=== PATIENT | male | born 1970 | race Caucasian/White ===

== ENCOUNTER 2020-01-25 20:42 | Emergency (ER) | payer SELFPAY ==
[2020-01-25] MEDS ORDERED: LORAZEPAM 1 MG TABLET PO ONE (21:36)
--- NOTE | 2020-01-25 21:38 | ER Document Report ---
ED Medical Screen (RME) - General Chief Complaint: Probable Seizure Stated Complaint: FALL Time Seen by Provider: 01/25/20 21:36 Information source: Patient Notes: Patient presents after having a witnessed seizure 2 hours prior to arrival at the [facility] facility. Patient was admitted there for alcohol detox. Patient states last alcohol use was 6 days ago. Patient states that he feels much better since receiving an injection at the detox facility after he had a seizure. Patient does have noticeable fine tremor to the hands bilaterally. I have greeted and performed a rapid initial assessment of this patient. A comprehensive ED assessment and evaluation of the patient, analysis of test results and completion of the medical decision making process will be conducted by additional ED providers. Physical Exam - Vital signs Vitals: Temp Pulse Resp BP Pulse Ox 98.1 F 99 18 130/78 H 95 01/25/20 20:52 01/25/20 20:52 01/25/20 20:52 01/25/20 20:52 01/25/20 20:52 - General General appearance: Alert Notes: Tremor noted to bilateral upper extremities Course - Vital Signs Vital signs: Temp Pulse Resp BP Pulse Ox 98.1 F 99 18 130/78 H 95 01/25/20 20:52 01/25/20 20:52 01/25/20 20:52 01/25/20 20:52 01/25/20 20:52
[2020-01-25 22:18] LABS: ABSOLUTE LYMPHOCYTES (AUTO) 0.9 10^3/uL (0.5-4.7); ABSOLUTE MONOCYTES (AUTO) 0.4 10^3/uL (0.1-1.4); ABSOLUTE NEUT (AUTO) 4.9 10^3/uL (1.7-8.2); BASOPHILS % (AUTO) 0.6 % (0-2); EOSINOPHILS % (AUTO) 0.5 % (0-6); HEMATOCRIT 42.6 % (37.9-51.0); HEMOGLOBIN 14.8 g/dL (13.5-17.0); LYMPHOCYTES % (AUTO) 14.1 % (13-45); MEAN CORPUSCULAR HEMOGLOBIN 34.6 pg (27.0-33.4); MEAN CORPUSCULAR HGB CONC 34.7 g/dL (32.0-36.0); MEAN CORPUSCULAR VOLUME 100 fl (80-97); MONOCYTES % (AUTO) 6.5 % (3-13); PLATELET COUNT 138 10^3/uL (150-450); RED BLOOD COUNT 4.27 10^6/uL (4.35-5.55); RED CELL DISTRIBUTION WIDTH 13.6 % (11.5-14.0); SEGMENTED NEUTROPHILS % (AUTO) 78.3 % (42-78); TOTAL CELLS COUNTED % (AUTO) 100 %; WHITE BLOOD COUNT 6.2 10^3/uL (4.0-10.5)
[2020-01-25 22:31] LABS: ALBUMIN 4.4 g/dL (3.5-5.0); ALKALINE PHOSPHATASE 119 U/L (38-126); ANION GAP 8 (5-19); APPEARANCE,URINE SLIGHTLY-CLOUDY; ASPARTATE AMINO TRANSFERASE 47 U/L (17-59); BILIRUBIN,DIRECT 0.3 mg/dL (0.0-0.4); BILIRUBIN,TOTAL 0.6 mg/dL (0.2-1.3); BILIRUBIN,URINE NEGATIVE (NEGATIVE); BLOOD UREA NITROGEN 8 mg/dL (7-20); CALCIUM 9.5 mg/dL (8.4-10.2); CARBON DIOXIDE 28 mmol/L (22-30); CHLORIDE 102 mmol/L (98-107); COLOR,URINE YELLOW; GLUCOSE 109 mg/dL (75-110); GLUCOSE, URINE NEGATIVE (NEGATIVE); KETONES,URINE NEGATIVE (NEGATIVE); LEUKOCYTE ESTERASE,URINE NEGATIVE (NEGATIVE); NITRITE,URINE NEGATIVE (NEGATIVE); POTASSIUM 4.1 mmol/L (3.6-5.0); PROTEIN,URINE 100 mg/dL (NEGATIVE); TOTAL PROTEIN 7.1 g/dL (6.3-8.2); URINE SPECIFIC GRAVITY 1.012; UROBILINOGEN,URINE NEGATIVE mg/dL (<2.0)
[2020-01-25 22:33] LABS: ADD MANUAL MICROSCOPIC YES
[2020-01-25 22:34] LABS: BACTERIA,URINE 1+ /HPF
[2020-01-25 22:40] LABS: URINE AMPHETAMINES SCREEN NEGATIVE; URINE BARBITURATES SCREEN NEGATIVE; URINE COCAINE SCREEN NEGATIVE; URINE MARIJUANA (THC) SCREEN NEGATIVE; URINE METHADONE SCREEN NEGATIVE; URINE PHENCYCLIDINE SCREEN NEGATIVE
[2020-01-25 22:43] LABS: ACETAMINOPHEN < 10 ug/mL (10-30); ALCOHOL < 10 mg/dL (NONE DETECTED); SALICYLATE < 1.0 mg/dL (2.0-20.0); URINE BENZODIAZEPINES SCREEN UNCONFIRMED POSITIVE
[2020-01-26] MEDS ORDERED: LORAZEPAM INJ 2 MG/1 ML VIAL IM ONE (04:15)
[2020-01-26] MEDS ORDERED: LEVETIRACETAM 1000 MG/NACL-ISO 1,000 MG/100 ML RTUPB IV ONE (04:24)
[2020-01-26] MEDS ORDERED: THIAMINE HCL 100 MG, FOLIC ACID 1 MG in NORMAL SALINE 250 ML IV ONE (05:12)
--- NOTE | 2020-01-26 05:13 | ER Document Report ---
ED General - General Chief Complaint: Seizure Stated Complaint: FALL Time Seen by Provider: 01/25/20 21:36 - HPI Notes: Patient is a 49-year-old male who presents to the ER for evaluation of seizures. Entire history is obtained from the referral sheet from [facility]. Evidently the patient was admitted for alcohol detoxification on January 23. On January 24 at 7:48 PM, patient was sitting when he started shaking, exhibiting seizure activity. He was given 2 mg of IM lorazepam and sent to the ED for further evaluation. He had been given gabapentin 600 mg p.o. at 3:45 PM. - Related Data Allergies/Adverse Reactions: No Known Allergies Allergy (Unverified 01/26/20 04:53) Home Medications: Antihypertensives, alprazolam Past Medical History - General Information source: Patient - Social History Smoking Status: Current Every Day Smoker Frequency of alcohol use: Heavy Drug Abuse: None Family History: Reviewed & Not Pertinent - Past Medical History Cardiac Medical History: Reports: Hx Hypertension Past Surgical History: Reports: Other - Carpal tunnel release Review of Systems - Review of Systems -: Yes ROS unobtainable due to patient's medical condition Physical Exam - Vital signs Vitals: Temp Pulse Resp BP Pulse Ox 98.1 F 99 18 130/78 H 95 01/25/20 20:52 01/25/20 20:52 01/25/20 20:52 01/25/20 20:52 01/25/20 20:52 - Notes Notes: Vital signs reviewed, please refer to chart. Head is normocephalic, atraumatic. Pupils equal round, reactive to light. Neck is supple without meningismus. Heart is regular rate and rhythm. Lungs are clear to auscultation bilaterally. Abdomen is soft, nontender, normoactive bowel sounds throughout. Extremities without cyanosis, clubbing. Posterior calves are nontender. Peripheral pulses are equal. Skin is warm and dry. Patient is awake, alert, disoriented to place and time. Cranial nerves II - XII are grossly intact without focal neurological deficits. Strength is plus 5 out of 5 bilateral upper and lower extremities. Sensation is intact. Reflexes symmetrical. Intact [id number], rapid alternating movements, [id number]. Course - Re-evaluation Re-evalutation: 01/26/20 05:11 Patient presented to the emergency department for evaluation. He was initially seen through triage, was given oral Ativan, had laboratory investigations ordered. I was called into evaluate the patient when he had been being transported back to a room, had a seizure activity. He did have witnessed seizure activity, was lowered to the floor. Seizure lasted approximately 60 seconds. He did have an appropriate postictal. He became slightly combative. He was medicated with 2 mg of IM Ativan, placed in a bed with seizure precautions in place. Was placed on manager cardiac cath. We will continue to monitor. 01/26/20 06:02 I went back into evaluate patient after he returned from CT scan. He is still disoriented, but now admits that he drinks. He admits he is here for alcohol withdrawal. He states that he drinks beer, is not uncommon for him to drink uppercase a day. He has no history of seizures prior to this. He complains of a mild headache to the left side of his head, otherwise no acute complaints or concerns. Still awaiting results of scan, lab work is largely unremarkable. 01/26/20 06:22 CT scan unremarkable. [facility] states that after a CT scan and medical clearance he can go back to [facility]. I will write him a prescription for a week of Keppra. He is to return to the ED with worsening or new concerning symptoms of any sort. - Vital Signs Vital signs: Temp Pulse Resp BP Pulse Ox 98.4 F 98 27 H 139/95 H 97 01/26/20 01:44 01/26/20 01:44 01/26/20 04:25 01/26/20 04:28 01/26/20 04:28 - Laboratory Result Diagrams: 01/25/20 21:56 01/25/20 21:56 Laboratory results interpreted by me: 01/25/20 01/25/20 01/25/20 21:56 21:56 21:56 RBC 4.27 L MCV 100 H MCH 34.6 H Plt Count 138 L Seg Neutrophils % 78.3 H Urine Protein 100 H Urine Ascorbic Acid 20 H Salicylates < 1.0 L Acetaminophen < 10 L - Diagnostic Test Radiology reviewed: Image reviewed, Reports reviewed Radiology results interpreted by me: 01/26/20 06:[address] 01/26/20 05:12 IMPRESSION: No acute intracranial abnormality TECHNICAL DOCUMENTATION: Quality ID # 436: Final reports with documentation of one or more dose reduction techniques (e.g., Automated exposure control, adjustment of the mA and/or kV according to patient size, use of iterative reconstruction technique) copyright 2011 [employer]- All Rights Reserved - EKG Interpretation by Me Additional EKG results interpreted by me: 01/26/20 05:13 Sinus mechanism with rate of 72 bpm. Normal axis and intervals. Some baseline interference on leads V2 and V3. No acute ST changes concerning for ischemia or infarction. No old studies available for comparison. Critical Care Note - Critical Care Note Total time excluding time spent on procedures (mins): 30 Discharge - Discharge Clinical Impression: Alcohol withdrawal seizure Qualifiers: Complication of substance-induced condition: uncomplicated Qualified Code(s): F10.230 - Alcohol dependence with withdrawal, uncomplicated Condition: Stable Disposition: OTHER Instructions: Alcohol Withdrawl ([facility]), Chronic Alcoholism ([facility]) Additional Instructions: You have had a seizure, likely secondary to alcohol withdrawal. Please take the medication as prescribed. You are to go directly to [facility] for further treatment and evaluation. Return to the emergency department with worsening or new concerning symptoms of any sort. Prescriptions: Levetiracetam [Keppra 500 mg Tablet] 500 mg PO Q12 #14 tablet
[2020-01-26] MEDS ORDERED: FOLIC ACID INJ 5 MG/1 ML 10 ML VIAL ONE (05:31)
[2020-01-26] MEDS ORDERED: THIAMINE HCL INJ 200 MG/2 ML VIAL ONE (05:31)
--- NOTE | 2020-01-26 06:09 | RADIOLOGY REPORT (SQ) ---
EXAM DESCRIPTION: CT HEAD WITHOUT IV CONTRAST COMPLETED DATE/TME: 01/26/2020 05:12 CLINICAL HISTORY: 49 years, Male, seizure COMPARISON: None. TECHNIQUE: 207 Images stored on PACS. All CT scanners at this facility use dose modulation, iterative reconstruction, and/or weight based dosing when appropriate to reduce radiation dose to as low as reasonably achievable (ALARA). [facility]: Dose Right [facility]: CareDose [facility]: Dose Right [facility]: Teradose 4D [facility]: [employer] LIMITATIONS: None. FINDINGS: The globes are intact. Paranasal sinuses and mastoid air cells are well aerated. No displaced or depressed skull fracture. No intra or extra-axial hemorrhage. CT is limited for evaluation of acute infarct. No CT evidence for large or territorial acute infarct. No mass. No midline shift IMPRESSION: No acute intracranial abnormality TECHNICAL DOCUMENTATION: Quality ID # 436: Final reports with documentation of one or more dose reduction techniques (e.g., Automated exposure control, adjustment of the mA and/or kV according to patient size, use of iterative reconstruction technique) copyright 2011 [employer]- All Rights Reserved
--- NOTE | 2020-01-26 07:52 | EKG REPORT ---
SEVERITY:- ABNORMAL ECG - SINUS RHYTHM CONSIDER ANTEROSEPTAL INFARCT : Confirmed by: Cristóbal Nolen MD 26-Jan-2020 07:50:29
[2020-01-26 09:04] VITALS: BP 114/89
== END 2020-01-26 09:30 | disposition other institution (70) ==
LOC: ER 20:42
DX: F10.230 Alcohol dependence with withdrawal, uncomplicated (principal); R56.9 Unspecified convulsions; R51 Headache; R41.0 Disorientation, unspecified; I10 Essential (primary) hypertension; F17.200 Nicotine dependence, unspecified, uncomplicated; Z79.899 Other long term (current) drug therapy
CPT/HCPCS: 93005; 99291; 96372; 96365; 96367; 36415; 80307 ×4; 85025; 80053; 81001; 70450; 93010; J3490; J2060; J3411; J7050; J1953